=== PATIENT | male | born 1940 | race Caucasian/White ===

== ENCOUNTER 2017-01-27 17:49 | Inpatient (IN) | payer MEDICARE, BC ==
[2017-01-27] MEDS ORDERED: SODIUM CHLORIDE 0.9% 500 ML IV STA (18:15)
[2017-01-27 18:27] LABS: Basophils # (A) 0.1 k/uL (0-0.2); Basophils % (A) 0 %; CH 31.2; CHCM 35.4; Eosinophils # (A) 0.2 k/uL (0-0.7); Eosinophils % (A) 1 %; HCT 42.1 % (39.0-53.0); HDW 2.67; HGB 15.3 gm/dL (13.0-17.5); Luc # (Auto) 0.27; Luc % (Auto) 1; Lymphocytes # (A) 2.2 k/uL (1.0-4.8); Lymphocytes % (A) 11 %; MCH 32.2 pg (25.0-35.0); MCHC 36.3 g/dL (31.0-37.0); MCV 88.7 fL (80.0-100.0); Mean Platelet Volume 7.3; Monocytes # (A) 1.4 k/uL (0-1.0); Monocytes % (A) 7 %; Neutrophils # (A) 16.6 k/uL (1.3-7.7); Neutrophils % (A) 81 %; RBC 4.75 m/uL (4.30-5.90); RDW 12.8 % (11.5-15.5); WBC 20.7 k/uL (3.8-10.6); WBC (Perox) 20.72
--- NOTE | 2017-01-27 18:27 | ED ---
Dizziness HPI - General Chief Complaint: Dizziness Stated Complaint: nausea,vomiting Time Seen by Provider: 01/27/17 17:55 Source: patient Mode of arrival: wheelchair Limitations: no limitations - History of Present Illness Initial Comments: This patient is a 76-year-old man who presents to be evaluated for a constellation of symptoms that include feeling off balance, having some vomiting , and abdominal pain. The patient believes that he "ate something that was bad " on Thursday. The patient states that Thursday a little after noon he developed some epigastric pain and had about 3 episodes of vomiting that day. The pain he described as aching, constant, it radiated to a small area in the middle of his back. He states that the pain had resolved by the evening. When he woke up today he was feeling dizzy and a little weak. He states that when he tries to walk he ends up taking 2 steps forward and one step backward. He and his had been camping with friends and the friends have been having to help him walk. The patient does not complain of focal weakness but states that he is feeling off balance. Patient states she has not had any of the abdominal pain or the back pain today. He has not had any of the vomiting today. He has not had a change in bowel movements. Patient has not had chest pain, dyspnea, diaphoresis, cough, fever or chills. MD Complaint: dizziness, difficulty walking Onset/Timin -: days(s) Timing: gradual onset Description: off-balance, difficulty walking History of Same: No History of Trauma: No Severity: moderate Improves With: remaining still Associated Symptoms: denies other symptoms - Related Data Home Medications Medication Instructions Recorded Confirmed Insulin Glargine,Hum.rec.anlog 38 unit SQ DAILY 01/27/17 01/27/17 [Lantus Solostar] Prandin(Unknown Dose) 3 tab PO TID 01/27/17 01/27/17 Allergies Allergy/AdvReac Type Severity Reaction Status Date / Time No Known Allergies Allergy Verified 01/27/17 18:03 Review of Systems ROS Statement: Those systems with pertinent positive or pertinent negative responses have been documented in the HPI. ROS Other: All systems not noted in ROS Statement are negative. Constitutional: Reports: weakness. Denies: fever, chills Eyes: Denies: vision change ENT: Denies: ear pain Respiratory: Denies: cough, dyspnea Cardiovascular: Denies: chest pain, palpitations, orthopnea, edema, syncope Gastrointestinal: Reports: as per HPI, abdominal pain, nausea, vomiting. Denies : diarrhea, hematemesis, melena, hematochezia Genitourinary: Denies: dysuria, hematuria Musculoskeletal: Reports: as per HPI, back pain Skin: Denies: rash Neurological: Reports: weakness, abnormal gait. Denies: headache, numbness, paresthesias, confusion, vertigo Past Medical History Past Medical History: Diabetes Mellitus History of Any Multi-Drug Resistant Organisms: None Reported Past Surgical History: No Surgical Hx Reported Past Psychological History: No Psychological Hx Reported Smoking Status: Never smoker Past Alcohol Use History: None Reported Past Drug Use History: None Reported General Exam Limitations: no limitations General appearance: alert, in no apparent distress Head exam: Present: atraumatic, normocephalic, normal inspection Eye exam: Present: normal appearance, PERRL, EOMI. Absent: scleral icterus, conjunctival injection, nystagmus ENT exam: Present: mucous membranes dry Neck exam: Present: normal inspection Respiratory exam: Present: normal lung sounds bilaterally. Absent: respiratory distress, wheezes, rales, rhonchi, stridor Cardiovascular Exam: Present: regular rate, normal rhythm, normal heart sounds. Absent: systolic murmur, diastolic murmur, rubs, gallop GI/Abdominal exam: Present: soft, normal bowel sounds. Absent: distended, tenderness, guarding, rebound, rigid, mass Extremities exam: Present: normal inspection, normal capillary refill. Absent: pedal edema, calf tenderness Back exam: Present: normal inspection. Absent: CVA tenderness (R), CVA tenderness (L) Neurological exam: Present: alert, oriented X3, CN II-XII intact. Absent: motor sensory deficit Skin exam: Present: warm, dry, intact, normal color. Absent: rash Course Vital Signs 01/27/17 01/27/17 01/27/17 17:51 18:40 19:22 Temperature 97.2 F L Pulse Rate 70 65 72 Respiratory 20 18 18 Rate Blood Pressure 121/57 119/56 127/59 O2 Sat by Pulse 98 98 97 Oximetry 01/27/17 20:06 Temperature 102.9 F H Pulse Rate 56 L Respiratory 18 Rate Blood Pressure 157/67 O2 Sat by Pulse 94 L Oximetry EKG Findings - EKG Results: EKG: interpreted by ERMD, WNL, sinus rhythm (Rate approximate 62 bpm), normal axis, normal QRS, normal ST/T, no acute changes - KS, Pacemaker, Normal: Normal tracing: normal tracing Medical Decision Making - Lab Data Result diagrams: 01/27/17 18:13 01/27/17 18:13 Lab Results 01/27/17 01/27/17 01/27/17 Range/Units 18:13 18:13 18:13 WBC 20.7 H (3.8-10.6) k/uL RBC 4.75 (4.30-5.90) m/uL Hgb 15.3 (13.0-17.5) gm/dL Hct 42.1 (39.0-53.0) % MCV 88.7 (80.0-100.0) fL MCH 32.2 (25.0-35.0) pg MCHC 36.3 (31.0-37.0) g/dL RDW 12.8 (11.5-15.5) % Plt Count 233 (150-450) k/uL Neutrophils % 81 % Lymphocytes % 11 % Monocytes % 7 % Eosinophils % 1 % Basophils % 0 % Neutrophils # 16.6 H (1.3-7.7) k/uL Lymphocytes # 2.2 (1.0-4.8) k/uL Monocytes # 1.4 H (0-1.0) k/uL Eosinophils # 0.2 (0-0.7) k/uL Basophils # 0.1 (0-0.2) k/uL Sodium 137 (137-145) mmol/L Potassium 4.5 (3.5-5.1) mmol/L Chloride 99 (98-107) mmol/L Carbon Dioxide 27 (22-30) mmol/L Anion Gap 11 mmol/L BUN 17 (9-20) mg/dL Creatinine 1.20 (0.66-1.25) mg/dL Est GFR (MDRD) Af Amer >60 (>60 ml/min/1.73 sqM) Est GFR (MDRD) Non-Af 59 (>60 ml/min/1.73 sqM) Glucose 205 H (74-99) mg/dL Plasma Lactic Acid Michele 1.8 (0.7-2.0) mmol/L Calcium 9.7 (8.4-10.2) mg/dL Total Bilirubin 1.0 (0.2-1.3) mg/dL AST 21 (17-59) U/L ALT 35 (21-72) U/L Alkaline Phosphatase 71 (38-126) U/L Troponin I (0.000-0.034) ng/mL Total Protein 7.2 (6.3-8.2) g/dL Albumin 4.1 (3.5-5.0) g/dL Urine Color Urine Appearance (Clear) Urine pH (5.0-8.0) Ur Specific Waldo (1.001-1.035) Urine Protein (Negative) Urine Glucose (UA) (Negative) Urine Ketones (Negative) Urine Blood (Negative) Urine Nitrite (Negative) Urine Bilirubin (Negative) Urine Urobilinogen (<2.0) mg/dL Ur Leukocyte Esterase (Negative) Urine RBC (0-5) /hpf Urine WBC (0-5) /hpf Ur Squamous Epith Cells (0-4) /hpf Urine Bacteria (None) /hpf Hyaline Casts (0-2) /lpf Urine Mucus (None) /hpf 01/27/17 01/27/17 Range/Units 18:13 18:39 WBC (3.8-10.6) k/uL RBC (4.30-5.90) m/uL Hgb (13.0-17.5) gm/dL Hct (39.0-53.0) % MCV (80.0-100.0) fL MCH (25.0-35.0) pg MCHC (31.0-37.0) g/dL RDW (11.5-15.5) % Plt Count (150-450) k/uL Neutrophils % % Lymphocytes % % Monocytes % % Eosinophils % % Basophils % % Neutrophils # (1.3-7.7) k/uL Lymphocytes # (1.0-4.8) k/uL Monocytes # (0-1.0) k/uL Eosinophils # (0-0.7) k/uL Basophils # (0-0.2) k/uL Sodium (137-145) mmol/L Potassium (3.5-5.1) mmol/L Chloride (98-107) mmol/L Carbon Dioxide (22-30) mmol/L Anion Gap mmol/L BUN (9-20) mg/dL Creatinine (0.66-1.25) mg/dL Est GFR (MDRD) Af Amer (>60 ml/min/1.73 sqM) Est GFR (MDRD) Non-Af (>60 ml/min/1.73 sqM) Glucose (74-99) mg/dL Plasma Lactic Acid Michele (0.7-2.0) mmol/L Calcium (8.4-10.2) mg/dL Total Bilirubin (0.2-1.3) mg/dL AST (17-59) U/L ALT (21-72) U/L Alkaline Phosphatase (38-126) U/L Troponin I <0.012 (0.000-0.034) ng/mL Total Protein (6.3-8.2) g/dL Albumin (3.5-5.0) g/dL Urine Color Yellow Urine Appearance Cloudy (Clear) Urine pH 5.5 (5.0-8.0) Ur Specific Waldo 1.024 (1.001-1.035) Urine Protein 1+ H (Negative) Urine Glucose (UA) 4+ H (Negative) Urine Ketones Trace H (Negative) Urine Blood Negative (Negative) Urine Nitrite Negative (Negative) Urine Bilirubin Negative (Negative) Urine Urobilinogen <2.0 (<2.0) mg/dL Ur Leukocyte Esterase Negative (Negative) Urine RBC 1 (0-5) /hpf Urine WBC 3 (0-5) /hpf Ur Squamous Epith Cells 1 (0-4) /hpf Urine Bacteria Rare H (None) /hpf Hyaline Casts 10 H (0-2) /lpf Urine Mucus Many H (None) /hpf Disposition Clinical Impression: Fever, Leukocytosis, SIRS (systemic inflammatory response syndrome) Narrative: suspect pneumonia Disposition: ADMITTED IP TO THIS HOSP Condition: Fair
[2017-01-27 18:46] LABS: ALT 35 U/L (21-72); AST 21 U/L (17-59); Alkaline Phosphatase 71 U/L (38-126); Anion Gap 11 mmol/L; Blood Urea Nitrogen 17 mg/dL (9-20); Calcium 9.7 mg/dL (8.4-10.2); Carbon Dioxide 27 mmol/L (22-30); Chloride 99 mmol/L (98-107); Glucose 205 mg/dL (74-99); Non-African American GFR(MDRD) 59 (>60 ml/min/1.73 sqM); Potassium 4.5 mmol/L (3.5-5.1); Sodium 137 mmol/L (137-145); Total Protein 7.2 g/dL (6.3-8.2)
[2017-01-27 18:54] LABS: Appearance,Urine Cloudy (Clear); Bacteria,Urine Rare /hpf; Bilirubin,Urine Negative (Negative); Glucose,Urine (UA) 4+ (Negative); Ketones,Urine Trace (Negative); Leukocyte Esterase,Urine Negative (Negative); Mucus,Urine Many /hpf; Nitrite,Urine Negative (Negative); PH, Urine 5.5 (5.0-8.0); Particle Count 29562; Protein,Urine 1+ (Negative); RBC,Urine 1 /hpf (0-5); Specific Gravity,Urine 1.024 (1.001-1.035); Squamous Epithelial Cell,Urine 1 /hpf (0-4); UA Billing (MACRO vs. MICRO) MICRO; Urobilinogen,Urine <2.0 mg/dL (<2.0); WBC,Urine 3 /hpf (0-5)
--- NOTE | 2017-01-27 19:14 | XR ---
EXAMINATION TYPE: XR chest 1V portable DATE OF EXAM: 01/27/2017 HISTORY: Shortness of breath. COMPARISON: None. TECHNIQUE: Single view of the chest is submitted. FINDINGS: Demonstrated are scattered senescent parenchymal change. There is no evidence for focal infiltrate. The heart is stable. Hilar and mediastinal structures are within normal limits. Degenerative changes are seen of the dorsal spine. IMPRESSION: 1. Chronic changes without evidence for acute pulmonary disease.
--- NOTE | 2017-01-27 19:45 | CT ---
EXAMINATION TYPE: CT brain wo con DATE OF EXAM: 01/27/2017 COMPARISON: NONE HISTORY: Dizziness today. CT DLP: 1030.[address] of the brain was performed. The ventricles, basal cisterns and sulci overlying the cerebral convexities demonstrate mild enlargem ent. There is no evidence for intracranial hemorrhage or sulcal effacement. There is decreased attenuation about the periventricular white matter and deep white matter of both c erebral hemispheres, compatible with chronic small vessel ischemia. Differential diagnosis does inclu de demyelination. No mass effects are seen.No midline shift. Osseous calvarium is intact. Chronic maxillary sinusitis. If symptoms persist consider MRI. IMPRESSION: 1. Age related atrophic and chronic small vessel ischemic change without acute intracranial process s een at this time.
[2017-01-27] MEDS ORDERED: INSULIN REGULAR 100 UNIT/ML VIAL SQ STA (19:50)
[2017-01-27] MEDS ORDERED: LEVOFLOXACIN 750MG-D5W PMX 750 MG in DEXTROSE/WATER 1 150ML.BAG IVPB STA (20:25)
[2017-01-27] MEDS ORDERED: NALOXONE 0.4 MG/ML 1 ML VIAL IV PRN (20:26)
[2017-01-27] MEDS ORDERED: ONDANSETRON 4 MG/2 ML VIAL IVP PRN (20:26)
[2017-01-27] MEDS: SODIUM CHLORIDE 0.9% 1,000 ML IV SCH (20:44)
[2017-01-27] MEDS ORDERED: ACETAMINOPHEN TAB 325 MG TAB PO STA (20:54)
[2017-01-27 21:00] LABS: Glucose,Whole Blood 192 mg/dL (75-99)
--- NOTE | 2017-01-27 21:12 | CT ---
EXAMINATION TYPE: CT abdomen pelvis wo con DATE OF EXAM: 01/27/2017 COMPARISON: NONE HISTORY: Nausea and vomiting yesterday. CT DLP: 904.40 mGycm Examination of the solid and hollow viscera is limited given the lack of contrast. FINDINGS: LUNG BASES: No evidence for nodule. Mild right basilar linear atelectasis. Small sliding-type hiatal hernia. LIVER/GB: Cholelithiasis with mild gallbladder wall thickening. No evidence for pericholecystic fluid . Correlate clinically for cholecystitis. No space-occupying hepatic lesion. PANCREAS: No pancreatic mass identified. No inflammatory process seen. SPLEEN: No evidence for splenomegaly. No intrasplenic lesions seen. ADRENALS: No adrenal nodules identified. No evidence for thickening. KIDNEYS: Hypoattenuating lesion upper pole left kidney may reflect a cyst. No nephrolithiasis. No hyd ronephrosis. BOWEL: Appendix has a normal appearance. No evidence of bowel obstruction. No inflammatory process. Lymph nodes: No evidence for adenopathy greater than 1 cm. Abdominal aorta: Atheromatous changes seen. No evidence for aneurysm. Genital organs: Prostate enlargement with calcifications. Other: Degnerative changes lumbar spine. IMPRESSION: 1. CHOLELITHIASIS WITH GALLBLADDER WALL THICKENING. CORRELATE FOR CHOLECYSTITIS. 2. Mild linear right basilar atelectasis. 3. Small sliding-type hiatal hernia.
[2017-01-27 21:33] LABS: Glucose,Whole Blood 178 mg/dL (75-99)
[2017-01-27 22:34] VITALS: BMI 29.7
[2017-01-27] MEDS: INSULIN LISPRO (humaLOG) 300 UNIT/3 ML VIAL SQ SCH (22:35)
[2017-01-27] MEDS: REPAGLINIDE 1 MG TAB PO SCH (22:35)
[2017-01-28 00:20] LABS: Hemoglobin A1C 8.6 % (4.2-6.1)
[2017-01-28] MEDS: ACETAMINOPHEN TAB 325 MG TAB PO PRN ×3 (00:52→22:47)
[2017-01-28 05:55] LABS: Glucose,Whole Blood 90 mg/dL (75-99)
--- NOTE | 2017-01-28 08:24 | XR ---
EXAMINATION TYPE: XR chest 2V DATE OF EXAM: 01/28/2017 HISTORY: Pain. REFERENCE: Previous study dated 01/27/2017. FINDINGS: There is apparent elevation of the right hemidiaphragm. There is bibasilar atelectasis. The heart is mildly enlarged. I could not exclude a tiny right-sided effusion. IMPRESSION: 1. BIBASILAR ATELECTASIS. 2. MILD CARDIOMEGALY. 3. I COULD NOT EXCLUDE A SMALL, RIGHT EFFUSION.
[2017-01-28] MEDS: REPAGLINIDE 1 MG TAB PO SCH ×3 (08:31→23:02)
[2017-01-28] MEDS: INSULIN GLARGINE 100 UNIT/ML 10 ML VIAL SQ SCH (08:32)
[2017-01-28] MEDS: INSULIN LISPRO (humaLOG) 300 UNIT/3 ML VIAL SQ SCH ×4 (08:33→22:51)
[2017-01-28 12:11] LABS: Glucose,Whole Blood 179 mg/dL (75-99)
--- NOTE | 2017-01-28 12:28 | P.GSCN ---
History of Present Illness Consult date: 01/28/17 Reason for Consult: Cholecystitis History of present illness: Patient came to the hospital last night with fevers and weakness. He started having abdominal discomfort in the upper abdomen radiating to the back on Thursday. Per the patient the pain yesterday was absent. He did have multiple episodes of vomiting on Thursday and had a diminished appetite yesterday. White blood cell count is elevated at 20. Fevers as high as 102. CAT scan shows gallbladder inflammation with stones. His comp is normal. Repeat labs from today are pending. Blood cultures are pending. He states he feels much better at this time. Appetite slightly diminished. No history of similar events in the past. Denies any change in the color of his skin urine or stool. Patient is diabetic. Review of Systems The patient denies any acute changes in vision or hearing, no dysphagia or odynophagia, no chest pain or shortness of breath, no dysuria or hematuria, no headache, no runny nose, no rectal bleeding or melena, no unexplained weight loss Past Medical History Past Medical History: Diabetes Mellitus, Hyperlipidemia History of Any Multi-Drug Resistant Organisms: None Reported Past Surgical History: No Surgical Hx Reported Past Psychological History: No Psychological Hx Reported Smoking Status: Never smoker Past Alcohol Use History: None Reported Past Drug Use History: None Reported - Past Family History Father Family Medical History: No Reported History Mother Family Medical History: Dementia Medications and Allergies Home Medications Medication Instructions Recorded Confirmed Type Insulin Glargine,Hum.rec.anlog 38 unit SQ DAILY 01/27/17 01/27/17 History [Lantus Solostar] Prandin(Unknown Dose) 3 tab PO TID 01/27/17 01/27/17 History Allergies Allergy/AdvReac Type Severity Reaction Status Date / Time No Known Allergies Allergy Verified 01/27/17 18:03 Surgical - Exam Vital Signs Temp Pulse Resp BP Pulse Ox 97.2 F L 70 20 121/57 98 01/27/17 17:51 01/27/17 17:51 01/27/17 17:51 01/27/17 17:51 01/27/17 17:51 Physical exam: General: Well-developed, well-nourished HEENT: Normocephalic, sclerae nonicteric Abdomen: Mild epigastric tenderness, no rebound or guarding, no palpable mass Extremities: No edema Neuro: Alert and oriented Results - Labs 01/27/17 18:13 01/27/17 18:13 Abnormal Lab Results - Last 24 Hours (Table) 01/27/17 01/27/17 01/27/17 Range/Units 18:13 18:13 18:13 WBC 20.7 H (3.8-10.6) k/uL Neutrophils # 16.6 H (1.3-7.7) k/uL Monocytes # 1.4 H (0-1.0) k/uL Glucose 205 H (74-99) mg/dL POC Glucose (mg/dL) (75-99) mg/dL Hemoglobin A1c 8.6 H (4.2-6.1) % Urine Protein (Negative) Urine Glucose (UA) (Negative) Urine Ketones (Negative) Urine Bacteria (None) /hpf Hyaline Casts (0-2) /lpf Urine Mucus (None) /hpf 01/27/17 01/27/17 01/27/17 Range/Units 18:39 20:58 21:31 WBC (3.8-10.6) k/uL Neutrophils # (1.3-7.7) k/uL Monocytes # (0-1.0) k/uL Glucose (74-99) mg/dL POC Glucose (mg/dL) 192 H 178 H (75-99) mg/dL Hemoglobin A1c (4.2-6.1) % Urine Protein 1+ H (Negative) Urine Glucose (UA) 4+ H (Negative) Urine Ketones Trace H (Negative) Urine Bacteria Rare H (None) /hpf Hyaline Casts 10 H (0-2) /lpf Urine Mucus Many H (None) /hpf 01/28/17 Range/Units 12:07 WBC (3.8-10.6) k/uL Neutrophils # (1.3-7.7) k/uL Monocytes # (0-1.0) k/uL Glucose (74-99) mg/dL POC Glucose (mg/dL) 179 H (75-99) mg/dL Hemoglobin A1c (4.2-6.1) % Urine Protein (Negative) Urine Glucose (UA) (Negative) Urine Ketones (Negative) Urine Bacteria (None) /hpf Hyaline Casts (0-2) /lpf Urine Mucus (None) /hpf Diabetes panel 01/27/17 01/27/17 Range/Units 18:13 18:13 Sodium 137 (137-145) mmol/L Potassium 4.5 (3.5-5.1) mmol/L Chloride 99 (98-107) mmol/L Carbon Dioxide 27 (22-30) mmol/L BUN 17 (9-20) mg/dL Creatinine 1.20 (0.66-1.25) mg/dL Glucose 205 H (74-99) mg/dL Hemoglobin A1c 8.6 H (4.2-6.1) % Calcium 9.7 (8.4-10.2) mg/dL AST 21 (17-59) U/L ALT 35 (21-72) U/L Alkaline Phosphatase 71 (38-126) U/L Total Protein 7.2 (6.3-8.2) g/dL Albumin 4.1 (3.5-5.0) g/dL Calcium panel 01/27/17 Range/Units 18:13 Calcium 9.7 (8.4-10.2) mg/dL Albumin 4.1 (3.5-5.0) g/dL Pituitary panel 01/27/17 Range/Units 18:13 Sodium 137 (137-145) mmol/L Potassium 4.5 (3.5-5.1) mmol/L Chloride 99 (98-107) mmol/L Carbon Dioxide 27 (22-30) mmol/L BUN 17 (9-20) mg/dL Creatinine 1.20 (0.66-1.25) mg/dL Glucose 205 H (74-99) mg/dL Calcium 9.7 (8.4-10.2) mg/dL Adrenal panel 01/27/17 Range/Units 18:13 Sodium 137 (137-145) mmol/L Potassium 4.5 (3.5-5.1) mmol/L Chloride 99 (98-107) mmol/L Carbon Dioxide 27 (22-30) mmol/L BUN 17 (9-20) mg/dL Creatinine 1.20 (0.66-1.25) mg/dL Glucose 205 H (74-99) mg/dL Calcium 9.7 (8.4-10.2) mg/dL Total Bilirubin 1.0 (0.2-1.3) mg/dL AST 21 (17-59) U/L ALT 35 (21-72) U/L Alkaline Phosphatase 71 (38-126) U/L Total Protein 7.2 (6.3-8.2) g/dL Albumin 4.1 (3.5-5.0) g/dL Assessment and Plan (1) Acute cholecystitis Narrative/Plan: Patient and I discussed the clinical scenario in detail. We suspect that the patient's gallbladder is the likely source of his illness. We'll repeat labs including amylase and CMP at this time. Continue IV antibiotics. Keep nothing by mouth for now. Will tentatively plan laparoscopic cholecystectomy possible open cholecystectomy later today. Risks of bleeding, infection, hernia, bile leak, bile duct injury, conversion to an open procedure, cardiac or respiratory complications were discussed. The patient understands and wishes to proceed. Status: Acute
[2017-01-28 12:51] LABS: Basophils # (A) 0.1 k/uL (0-0.2); Basophils % (A) 0 %; CH 31.4; CHCM 33.9; Eosinophils # (A) 0.2 k/uL (0-0.7); Eosinophils % (A) 1 %; HCT 40.5 % (39.0-53.0); HDW 2.57; HGB 13.7 gm/dL (13.0-17.5); Luc # (Auto) 0.17; Luc % (Auto) 1; Lymphocytes # (A) 1.7 k/uL (1.0-4.8); Lymphocytes % (A) 10 %; MCH 31.4 pg (25.0-35.0); MCHC 33.8 g/dL (31.0-37.0); Mean Platelet Volume 8.4; Monocytes # (A) 1.1 k/uL (0-1.0); Monocytes % (A) 7 %; Neutrophils % (A) 81 %; RBC 4.35 m/uL (4.30-5.90); WBC 17.3 k/uL (3.8-10.6); WBC (Perox) 16.44
[2017-01-28 13:01] LABS: ALT 32 U/L (21-72); AST 24 U/L (17-59); Alkaline Phosphatase 62 U/L (38-126); Amylase <30 U/L (30-110); Anion Gap 10 mmol/L; Blood Urea Nitrogen 17 mg/dL (9-20); Calcium 8.9 mg/dL (8.4-10.2); Carbon Dioxide 24 mmol/L (22-30); Chloride 104 mmol/L (98-107); Glucose 87 mg/dL (74-99); Non-African American GFR(MDRD) 59 (>60 ml/min/1.73 sqM); Potassium 3.8 mmol/L (3.5-5.1); Sodium 138 mmol/L (137-145); Total Bilirubin 1.1 mg/dL (0.2-1.3); Total Protein 6.1 g/dL (6.3-8.2)
[2017-01-28] MEDS: AMPICILLIN-SULBACTAM 3 GM in SODIUM CHLORIDE 0.9% 100 ML IVPB SCH ×3 (13:04→22:50)
[2017-01-28] MEDS: SODIUM CHLORIDE 0.9% 1,000 ML IV SCH ×2 (13:05→22:50)
[2017-01-28 16:46] LABS: Glucose,Whole Blood 119 mg/dL (75-99)
--- NOTE | 2017-01-28 17:14 | P.HPIM ---
History of Present Illness H&P Date: 01/28/17 Chief Complaint: Change in mental status 86-year-old gentleman with history of diabetes and peripheral neuropathy comes in to the hospital with generalized weakness and some change in mental status. Patient states that he has not had an episode of sudden right-sided abdominal pain with radiation to the epigastric region with one episode of nausea and biliary emesis Patient was noted to have a T-max 103. Patient was seen in the emergency room with the concern for sepsis a chest x-ray was done which did not reveal any acute abnormalities with abdominal pain features a computed tomography scan of the abdomen was done which showed inflammatory changes in the gallbladder with choledocholithiasis During the time of my evaluation patient states that he does not have headache chest pain difficulty breathing nausea vomiting or diarrhea no significant right upper quadrant abdominal pain is reported She does not have any history of cardiac disease lifelong nonsmoker Patient is able to perform more than 4 mets at base line Review of Systems All systems: negative (Noted in HPI) Past Medical History Past Medical History: Diabetes Mellitus, Hyperlipidemia History of Any Multi-Drug Resistant Organisms: None Reported Past Surgical History: No Surgical Hx Reported Past Psychological History: No Psychological Hx Reported Smoking Status: Never smoker Past Alcohol Use History: None Reported Past Drug Use History: None Reported - Past Family History Father Family Medical History: No Reported History Mother Family Medical History: Dementia Medications and Allergies Home Medications Medication Instructions Recorded Confirmed Type Insulin Glargine,Hum.rec.anlog 38 unit SQ DAILY 01/27/17 01/27/17 History [Lantus Solostar] Prandin(Unknown Dose) 3 tab PO TID 01/27/17 01/27/17 History Allergies Allergy/AdvReac Type Severity Reaction Status Date / Time No Known Allergies Allergy Verified 01/27/17 18:03 Physical Exam Vitals: Vital Signs Temp Pulse Pulse Resp BP BP Pulse Ox 01/28/17 15:51 99.1 F 62 16 128/65 95 01/28/17 11:17 98.4 F 61 18 121/64 94 L 01/28/17 08:00 100.3 F H 72 18 123/64 94 L 01/28/17 04:00 100.6 F H 65 18 125/62 96 01/28/17 00:52 101.0 F H 01/27/17 23:30 100.3 F H 60 18 119/58 93 L 01/27/17 21:50 102.0 F H 62 18 139/64 96 01/27/17 21:00 103.1 F H 107 H 20 143/65 96 01/27/17 20:06 102.9 F H 56 L 18 157/67 94 L 01/27/17 19:22 72 18 127/59 97 01/27/17 18:40 65 18 119/56 98 01/27/17 17:51 97.2 F L 70 20 121/57 98 Intake and Output 01/28/17 01/28/17 01/28/17 06:59 14:59 22:59 Intake Total 750 100 Output Total 880 300 Balance -130 -200 Intake: IV 750 Levofloxacin 750Mg-D5w 150 Pmx 750 mg In Dextrose/ Water 1 150ml.bag @ 100 mls/hr IVPB ONCE STA Rx#: [id number] Sodium Chloride 0.9% 1, 600 000 ml @ 75 mls/hr IV . [id number] [facility] Rx#:[id number] Oral 100 Output: Urine 880 300 Straight 400 Other: Voiding Method Urinal Toilet Toilet # Voids 2 Weight 96.9 kg Physical exam Gen. appearance oriented 3 in no distress Neck is supple no JVD Lungs good air entry clear to auscultation no rhonchi or wheezing Heart S1-S2 heard regular rate and rhythm no murmurs appreciated Abdomen is softr no organomegaly bowel sounds are intact. Goldstein's positive Neurologically cranial nerves II-12 grossly intact no focal motor or sensory deficits noted Skin no abnormalities appreciated Results CBC & Chem 7: 01/28/17 05:49 01/28/17 05:49 Labs: Abnormal Lab Results - Last 24 Hours (Table) 01/27/17 01/27/17 01/27/17 Range/Units 18:13 18:13 18:13 WBC 20.7 H (3.8-10.6) k/uL Neutrophils # 16.6 H (1.3-7.7) k/uL Monocytes # 1.4 H (0-1.0) k/uL Glucose 205 H (74-99) mg/dL POC Glucose (mg/dL) (75-99) mg/dL Hemoglobin A1c 8.6 H (4.2-6.1) % Total Protein (6.3-8.2) g/dL Albumin (3.5-5.0) g/dL Amylase (30-110) U/L Urine Protein (Negative) Urine Glucose (UA) (Negative) Urine Ketones (Negative) Urine Bacteria (None) /hpf Hyaline Casts (0-2) /lpf Urine Mucus (None) /hpf 01/27/17 01/27/17 01/27/17 Range/Units 18:39 20:58 21:31 WBC (3.8-10.6) k/uL Neutrophils # (1.3-7.7) k/uL Monocytes # (0-1.0) k/uL Glucose (74-99) mg/dL POC Glucose (mg/dL) 192 H 178 H (75-99) mg/dL Hemoglobin A1c (4.2-6.1) % Total Protein (6.3-8.2) g/dL Albumin (3.5-5.0) g/dL Amylase (30-110) U/L Urine Protein 1+ H (Negative) Urine Glucose (UA) 4+ H (Negative) Urine Ketones Trace H (Negative) Urine Bacteria Rare H (None) /hpf Hyaline Casts 10 H (0-2) /lpf Urine Mucus Many H (None) /hpf 01/28/17 01/28/17 01/28/17 Range/Units 05:49 05:49 12:07 WBC 17.3 H (3.8-10.6) k/uL Neutrophils # 14.0 H (1.3-7.7) k/uL Monocytes # 1.1 H (0-1.0) k/uL Glucose (74-99) mg/dL POC Glucose (mg/dL) 179 H (75-99) mg/dL Hemoglobin A1c (4.2-6.1) % Total Protein 6.1 L (6.3-8.2) g/dL Albumin 3.2 L (3.5-5.0) g/dL Amylase <30 L (30-110) U/L Urine Protein (Negative) Urine Glucose (UA) (Negative) Urine Ketones (Negative) Urine Bacteria (None) /hpf Hyaline Casts (0-2) /lpf Urine Mucus (None) /hpf 01/28/17 Range/Units 16:44 WBC (3.8-10.6) k/uL Neutrophils # (1.3-7.7) k/uL Monocytes # (0-1.0) k/uL Glucose (74-99) mg/dL POC Glucose (mg/dL) 119 H (75-99) mg/dL Hemoglobin A1c (4.2-6.1) % Total Protein (6.3-8.2) g/dL Albumin (3.5-5.0) g/dL Amylase (30-110) U/L Urine Protein (Negative) Urine Glucose (UA) (Negative) Urine Ketones (Negative) Urine Bacteria (None) /hpf Hyaline Casts (0-2) /lpf Urine Mucus (None) /hpf Thrombosis Risk Factor Assmnt - Choose All That Apply Any of the Below Risk Factors Present?: Yes Each Factor Represents 1 point: Medical pt on bed rest, Sepsis (< 1month) Other Risk Factors: Yes Each Risk Factor Represents 2 Points: Age 61-74 years Thrombosis Risk Factor Assessment Total Risk Factor Score: 4 Thrombosis Risk Factor Assessment Level: Moderate Risk Assessment and Plan Plan: #1 sepsis secondary to acute cholecystitis #2 diabetes mellitus #3 peripheral neuropathy Plan We'll obtain a surgical consultation for cholecystectomy empirically placed on Unasyn Patient is able to perform more than 4 mets at baseline there is no further need for any evaluation patient is cleared for surgery DVT prophylaxis
[2017-01-28] MEDS ORDERED: IV FLUID CONTINUATION 1,000 ML IV ONE (17:23)
[2017-01-28] MEDS ORDERED: METOCLOPRAMIDE 5 MG/ML 2 ML VIAL IVP ONE (17:54)
[2017-01-28] MEDS ORDERED: HEPARIN SODIUM,PORCINE 5,000 UNIT/ML 1 ML VIAL SQ ONE (18:03)
[2017-01-28] MEDS ORDERED: SUCCINYLCHOLINE CHLORIDE 100 MG/5 ML SYR IV ONE (18:06)
[2017-01-28] MEDS ORDERED: ROCURONIUM BROMIDE 10 MG/ML 10 ML VIAL IV ONE (18:06)
[2017-01-28] MEDS ORDERED: fentaNYL (PF) 50 MCG/ML 2 ML AMP ONE (18:06)
[2017-01-28] MEDS ORDERED: PROPOFOL 10 MG/ML 20 ML VIAL IV ONE (18:06)
[2017-01-28] MEDS ORDERED: GLYCOPYRROLATE 0.2 MG/ML 2 ML VIAL ONE (18:06)
[2017-01-28] MEDS ORDERED: LIDOCAINE 1% INJ 10MG/ML (20 ML MDV) ONE (18:06)
[2017-01-28] MEDS ORDERED: NEOSTIGMINE 1 MG/ML 10 ML VIAL ONE (18:06)
[2017-01-28] MEDS ORDERED: SODIUM CHLORIDE 0.9% 100 ML with ceFAZolin 2,000 MG IV ONE ×2 (18:15)
[2017-01-28] MEDS ORDERED: BUPIVACAINE (PF) 0.25% 30 ML VIAL SQ ONE ×2 (18:26→19:45)
[2017-01-28] MEDS ORDERED: LACTATED RINGERS 1,000 ML IV ONE ×2 (18:58)
--- NOTE | 2017-01-28 20:06 | P.PCN ---
Date of Procedure: 01/28/17 Preoperative Diagnosis: Postoperative Diagnosis: Procedure(s) Performed: PREOPERATIVE DIAGNOSIS: Acute cholecystitis POSTOPERATIVE DIAGNOSIS: Same with hydrops PROCEDURE: Laparoscopic cholecystectomy SURGEON: Gretchen EBL: Minimal see anesthesia record ANESTHESIA: Gen. COMPLICATIONS: None OPERATIVE PROCEDURE: The patient was brought and placed on the operating room table in the supine position. The patient was placed under general anesthesia at that time. The abdomen was prepped and draped in the usual sterile fashion. A small horizontal supraumbilical incision was made. The fascia was grasped with the Bella forceps. The fascia was retracted anteriorly. The Veress needle was advanced into the peritoneal cavity. The saline drop test was normal. Insufflation took place up to 15 mmHg. A 5 mm optical trocar was advanced and the peritoneal cavity. 2 additional 5 mm trochars were placed in the right upper quadrant under direct visualization. A 10 mm trocar was advanced into the epigastric incision site. This was later switched to a 12 mm trocar. The gallbladder was acutely inflamed. It was quite distended and there was a small focus of gangrenous changes. An opening was made in the fundus and clear fluid was evacuated. The gallbladder was retracted superiorly and laterally. The peritoneum overlying the infundibulum was bluntly dissected. There was significant induration involving the infundibulum as it passed towards the suspected region of the cystic duct. There were 2-3 small vessels that were ligated using the clip care aide. The patient's infundibulum narrowed down after blunt dissection into what appeared to represent the cystic duct. The arch of the hepatic artery seemed to be just adjacent to this. Careful dissection took place using the Kitner and I was able to encircle what appeared to represent a significantly inflamed cystic duct. No additional ductal structures were seen above this level. A 2-0 Ethibond stitch was used to ligate the duct at that location and an additional 12 mm clip was also placed on the patient's side. The gallbladder was then cut on the specimen side revealing a very small opening into the cystic duct. The gallbladder was then removed from the liver bed primarily using blunt dissection. Small areas of bleeding were controlled using spot cautery. Additional small vessel was seen along the right lateral aspect of the gallbladder and clipped. A drain was placed in the gallbladder fossa exiting through the most lateral 5 mm trocar site. The gallbladder itself was removed from the epigastric trocar site with an Endo Catch bag. The gallbladder fossa was irrigated with saline. There was no evidence of any bleeding or biliary drainage seen. The trochars were then removed. The fascia at the 12 millimeter site was closed using a Elroy-Darryl 0 Vicryl stitch. The skin at all 3 sites was closed using a 4- 0 Monocryl stitch. At the end of this procedure the sponge and needle counts were correct. DISPOSITION: Stable to the recovery room Implants: Indications for Procedure: Operative Findings: Description of Procedure:
[2017-01-28 20:58] LABS: Glucose,Whole Blood 142 mg/dL (75-99)
[2017-01-28] MEDS ORDERED: LEVOFLOXACIN 750MG-D5W PMX 750 MG in DEXTROSE/WATER 1 150ML.BAG IVPB SCH (21:00)
[2017-01-29] MEDS ORDERED: ACETAMINOPHEN IV (For NPO) 1,000 MG in EMPTY BAG 1 BAG IVPB PRN (01:17)
[2017-01-29 05:37] LABS: Glucose,Whole Blood 124 mg/dL (75-99)
[2017-01-29 06:22] LABS: Basophils % (A) 0 %; CH 30.9; CHCM 34.1; Eosinophils # (A) 0.1 k/uL (0-0.7); Eosinophils % (A) 1 %; HCT 40.2 % (39.0-53.0); HDW 2.75; HGB 13.9 gm/dL (13.0-17.5); Luc # (Auto) 0.26; Luc % (Auto) 2; Lymphocytes # (A) 1.3 k/uL (1.0-4.8); Lymphocytes % (A) 9 %; MCH 31.4 pg (25.0-35.0); MCHC 34.5 g/dL (31.0-37.0); Mean Platelet Volume 6.9; Monocytes # (A) 0.9 k/uL (0-1.0); Monocytes % (A) 6 %; Neutrophils # (A) 12.3 k/uL (1.3-7.7); Neutrophils % (A) 82 %; RBC 4.42 m/uL (4.30-5.90); RDW 12.6 % (11.5-15.5); WBC 14.9 k/uL (3.8-10.6); WBC (Perox) 15.77
[2017-01-29 06:46] LABS: ALT 64 U/L (21-72); AST 72 U/L (17-59); Alkaline Phosphatase 67 U/L (38-126); Anion Gap 13 mmol/L; Blood Urea Nitrogen 15 mg/dL (9-20); Calcium 8.5 mg/dL (8.4-10.2); Carbon Dioxide 19 mmol/L (22-30); Chloride 108 mmol/L (98-107); Glucose 131 mg/dL (74-99); Non-African American GFR(MDRD) >60 (>60 ml/min/1.73 sqM); Potassium 4.2 mmol/L (3.5-5.1); Sodium 140 mmol/L (137-145); Total Bilirubin 1.1 mg/dL (0.2-1.3); Total Protein 6.4 g/dL (6.3-8.2)
[2017-01-29] MEDS: INSULIN LISPRO (humaLOG) 300 UNIT/3 ML VIAL SQ SCH ×4 (06:49→21:35)
[2017-01-29] MEDS: INSULIN GLARGINE 100 UNIT/ML 10 ML VIAL SQ SCH (09:32)
[2017-01-29] MEDS: ACETAMINOPHEN TAB 325 MG TAB PO PRN ×3 (09:32→20:20)
[2017-01-29] MEDS: REPAGLINIDE 1 MG TAB PO SCH ×3 (09:33→22:23)
[2017-01-29] MEDS: AMPICILLIN-SULBACTAM 3 GM in SODIUM CHLORIDE 0.9% 100 ML IVPB SCH ×3 (09:34→23:20)
[2017-01-29 11:51] LABS: Glucose,Whole Blood 177 mg/dL (75-99)
--- NOTE | 2017-01-29 12:43 | CDI ---
In responding to this query, please exercise your independent professional judgment. The [facility] Coding Staff and Clinical Documentation Specialists appreciate your assistance in clarifying documentation, maintaining compliance with coding guidelines, accurately documenting patients condition and capturing severity of illness. The fact that a question is asked does not imply that any particular answer is desired or expected. Communication forms are a method of clarifying documentation and are not made part of the Legal Health Record. Thank you in advance for your clarification. Last Revision, June 2015 Janice Prater [address] [facility] [place] [address] Documentation Clarification Form Date: 01/29/2017 12:28:00 PM From: Char Barr Admit Date: 01/27/2017 8:31:00 PM Patient Name: Ilir Viera Visit Number: [id number] Discharge Date: Dr. Jose Cruz Rebollar The patient has diabetes, as indicated H&P and progress note: Clinical Indicators: History of diabetes, Hemoglobin A1c 8.6 Treatment: Monitor blood sugar ACHS Insulin SQ per orders In order to capture the severity of Illness and necessary documentation specificity, please clarify: DM Type 1 DM Type 2 DM due to underlying condition, specify (e.g. Cushings syndrome) Gestational DM Unable to Determine Other Condition Please document any body system complications or specific manifestations related to the diabetes: Diabetic Nephropathy Diabetic Autonomic Neuropathy Diabetic Peripheral Vascular Disease Proliferative diabetic retinopathy with macular edema Diabetic foot ulcers, specify location Ketoacidosis Hypoglycemia with or without coma Hyperglycemia Hyperosmolarity Coma/nonketotic hyperglycemic-hyperosmolar coma Other condition Please document in your progress notes and discharge summary in order to capture severity of illness and risk of mortality. Include clinical findings that support your diagnosis. FYI: Press F11 to launch patient chart. Place X here if this finding has no clinical significance, is not applicable or if you are not able to provide any additional documentation. ARIC
[2017-01-29] MEDS: SODIUM CHLORIDE 0.9% 1,000 ML IV SCH ×2 (13:02→23:20)
[2017-01-29 16:37] LABS: Glucose,Whole Blood 157 mg/dL (75-99)
--- NOTE | 2017-01-29 20:27 | P.PN ---
Subjective Principal diagnosis: Cholecystitis Patient seems to have been doing quite well throughout the day however recently over the last hour or so he feels that he may be coming down with a fever once again. Is having some mild abdominal discomfort but says its expected. SARINA drain is serosanguineous. White blood cell count improving. He did have a fever yesterday evening about 102.5. Objective - Vital Signs Vital signs: Vital Signs Temp 98.9 F 01/29/17 15:39 Pulse 65 01/29/17 15:39 Resp 16 01/29/17 15:39 BP 124/53 01/29/17 15:39 Pulse Ox 92 L 01/29/17 15:39 Intake & Output 01/29/17 01/29/17 01/30/17 06:59 18:59 06:59 Intake Total 1625 50 Output Total 1555 1025 Balance 70 -975 Weight 97.6 kg Intake: IV 1125 Sodium Chloride 0.9% 1, 525 000 ml @ 75 mls/hr IV . [id number] [facility] Rx#:[id number] Intake, IV Titration 500 Amount ACETAMINOPHEN IV (For NPO 400 ) 1,000 mg In Empty Bag 1 bag @ 400 mls/hr IVPB Q6HR [facility] Rx#:[id number] Ampicillin-Sulbactam 3 gm 100 In Sodium Chloride 0.9% 100 ml @ 100 mls/hr IVPB Q8HR [facility] Rx#:[id number] Oral 50 Output: Drainage 45 Abdomen 45 Urine 1500 1025 Straight 1500 325 Estimated Blood Loss 10 Other: Voiding Method Urinal Indwelling Catheter - Exam Abdomen: Soft, mild distention, dressings clean and dry - Labs CBC & Chem 7: 01/29/17 06:08 01/29/17 06:03 Labs: Abnormal Lab Results - Last 24 Hours (Table) 01/28/17 01/29/17 01/29/17 Range/Units 20:56 05:34 06:03 WBC (3.8-10.6) k/uL Neutrophils # (1.3-7.7) k/uL Chloride 108 H (98-107) mmol/L Carbon Dioxide 19 L (22-30) mmol/L Glucose 131 H (74-99) mg/dL POC Glucose (mg/dL) 142 H 124 H (75-99) mg/dL AST 72 H (17-59) U/L Albumin 3.2 L (3.5-5.0) g/dL 01/29/17 01/29/17 01/29/17 Range/Units 06:08 11:46 16:35 WBC 14.9 H (3.8-10.6) k/uL Neutrophils # 12.3 H (1.3-7.7) k/uL Chloride (98-107) mmol/L Carbon Dioxide (22-30) mmol/L Glucose (74-99) mg/dL POC Glucose (mg/dL) 177 H 157 H (75-99) mg/dL AST (17-59) U/L Albumin (3.5-5.0) g/dL Microbiology - Last 24 Hours (Table) 01/27/17 18:13 Blood Culture - Preliminary Blood No Growth after 24 hours Assessment and Plan (1) Acute cholecystitis Narrative/Plan: Continue antibiotics. Follow cultures. Repeat lab work tomorrow. Continue ambulation. Diet as tolerated. Status: Acute
[2017-01-29 21:03] LABS: Glucose,Whole Blood 147 mg/dL (75-99)
[2017-01-30 07:59] LABS: Basophils % (A) 0 %; CH 31.7; CHCM 34.7; Eosinophils # (A) 0.2 k/uL (0-0.7); Eosinophils % (A) 1 %; HCT 38.3 % (39.0-53.0); HDW 2.77; HGB 12.9 gm/dL (13.0-17.5); Luc # (Auto) 0.22; Luc % (Auto) 2; Lymphocytes # (A) 1.1 k/uL (1.0-4.8); Lymphocytes % (A) 8 %; MCHC 33.7 g/dL (31.0-37.0); MCV 91.9 fL (80.0-100.0); Mean Platelet Volume 7.3; Monocytes # (A) 0.8 k/uL (0-1.0); Monocytes % (A) 6 %; Neutrophils # (A) 10.7 k/uL (1.3-7.7); Neutrophils % (A) 83 %; RBC 4.17 m/uL (4.30-5.90); RDW 12.7 % (11.5-15.5); WBC 12.9 k/uL (3.8-10.6)
[2017-01-30 08:15] LABS: Glucose,Whole Blood 90 mg/dL (75-99)
[2017-01-30 08:17] LABS: Anion Gap 10 mmol/L; Blood Urea Nitrogen 15 mg/dL (9-20); Calcium 8.3 mg/dL (8.4-10.2); Carbon Dioxide 22 mmol/L (22-30); Chloride 108 mmol/L (98-107); Glucose 84 mg/dL (74-99); Non-African American GFR(MDRD) >60 (>60 ml/min/1.73 sqM); Potassium 3.9 mmol/L (3.5-5.1); Sodium 140 mmol/L (137-145)
[2017-01-30] MEDS: TAMSULOSIN 0.4 MG CAP.ER.24H PO SCH (09:26)
[2017-01-30] MEDS: INSULIN LISPRO (humaLOG) 300 UNIT/3 ML VIAL SQ SCH ×4 (09:26→21:07)
[2017-01-30] MEDS: REPAGLINIDE 1 MG TAB PO SCH ×3 (09:26→21:07)
[2017-01-30] MEDS: INSULIN GLARGINE 100 UNIT/ML 10 ML VIAL SQ SCH (09:27)
[2017-01-30] MEDS: AMPICILLIN-SULBACTAM 3 GM in SODIUM CHLORIDE 0.9% 100 ML IVPB SCH (09:28)
[2017-01-30] MEDS ORDERED: PIPERACILLIN-TAZOBACTAM 3.375 GM in DEXTROSE/WATER 1 50ML.BAG IVPB SCH (11:15)
--- NOTE | 2017-01-30 12:02 | XR ---
EXAMINATION TYPE: XR chest 1V portable DATE OF EXAM: 01/30/2017 HISTORY: Shortness of breath. COMPARISON: 01/28/2017 TECHNIQUE: Single view of the chest is submitted. FINDINGS: Demonstrated are scattered senescent parenchymal change. Increasing right basilar opacity may reflect atelectasis and/or infiltrate with small effusion. Jordan nued follow-up is advised. The heart is stable. Hilar and mediastinal structures are within normal limits. Degenerative changes are seen of the dorsal spine. IMPRESSION: 1. Increasing right basilar opacity may reflect atelectasis and/or infiltrate with small effusion. C ontinued follow-up is advised.
[2017-01-30 12:20] LABS: Glucose,Whole Blood 160 mg/dL (75-99)
[2017-01-30] MEDS: PANTOPRAZOLE 40 MG/10 ML VIAL IVP SCH ×2 (15:47→21:06)
[2017-01-30] MEDS: HEPARIN SODIUM,PORCINE 5,000 UNIT/ML 1 ML VIAL SQ SCH ×2 (15:47→23:30)
--- NOTE | 2017-01-30 16:06 | P.PN ---
Subjective Principal diagnosis: Cholecystitis Patient had fevers again last night. He is complaining of some belching. Decreased bowel function. SARINA drain remains serosanguineous. Objective - Vital Signs Vital signs: Vital Signs Temp 98.7 F 01/30/17 08:00 Pulse 63 01/30/17 08:00 Resp 16 01/30/17 08:00 BP 148/70 01/30/17 07:00 Pulse Ox 94 L 01/30/17 07:00 Intake & Output 01/29/17 01/30/17 01/30/17 18:59 06:59 18:59 Intake Total 50 2000 Output Total 1025 45 650 Balance -975 1955 -650 Intake: IV 600 Sodium Chloride 0.9% 1, 600 000 ml @ 75 mls/hr IV . [id number] [facility] Rx#:[id number] Intake, IV Titration 100 Amount Ampicillin-Sulbactam 3 gm 100 In Sodium Chloride 0.9% 100 ml @ 100 mls/hr IVPB Q8HR [facility] Rx#:[id number] Oral 50 1300 Output: Drainage 45 50 Abdomen 45 50 Urine 1025 600 Straight 325 600 Other: Voiding Method Indwelling Catheter Indwelling Catheter Indwelling Catheter - Exam Abdomen: Soft, mild distention, minimal tenderness, dressings intact - Labs CBC & Chem 7: 01/30/17 07:29 01/30/17 07:29 Labs: Abnormal Lab Results - Last 24 Hours (Table) 01/29/17 01/29/17 01/30/17 Range/Units 16:35 21:02 07:29 WBC 12.9 H (3.8-10.6) k/uL RBC 4.17 L (4.30-5.90) m/uL Hgb 12.9 L (13.0-17.5) gm/dL Hct 38.3 L (39.0-53.0) % Neutrophils # 10.7 H (1.3-7.7) k/uL Chloride (98-107) mmol/L POC Glucose (mg/dL) 157 H 147 H (75-99) mg/dL Calcium (8.4-10.2) mg/dL 01/30/17 01/30/17 Range/Units 07:29 12:01 WBC (3.8-10.6) k/uL RBC (4.30-5.90) m/uL Hgb (13.0-17.5) gm/dL Hct (39.0-53.0) % Neutrophils # (1.3-7.7) k/uL Chloride 108 H (98-107) mmol/L POC Glucose (mg/dL) 160 H (75-99) mg/dL Calcium 8.3 L (8.4-10.2) mg/dL Microbiology - Last 24 Hours (Table) 01/29/17 01:43 Blood Culture - Preliminary Blood No Growth after 24 hours 01/29/17 02:18 Blood Culture - Preliminary Blood No Growth after 24 hours 01/27/17 18:13 Blood Culture - Preliminary Blood No Growth after 48 hours Assessment and Plan (1) Acute cholecystitis Narrative/Plan: Agree with continuing fever workup. Recheck lab work tomorrow. Keep drain until postop follow-up. Status: Acute
[2017-01-30 16:11] VITALS: TEMP 98.6
[2017-01-30 17:48] LABS: Glucose,Whole Blood 157 mg/dL (75-99)
[2017-01-30] MEDS: PIPERACILLIN-TAZOBACTAM 3.375 GM in DEXTROSE/WATER 1 50ML.BAG IVPB SCH (19:11)
[2017-01-30] MEDS: LEVALBUTEROL NEB 1.25 MG/3 ML AMP INHALATION SCH (20:02)
[2017-01-30 20:21] LABS: Glucose,Whole Blood 211 mg/dL (75-99)
[2017-01-31] MEDS: PIPERACILLIN-TAZOBACTAM 3.375 GM in DEXTROSE/WATER 1 50ML.BAG IVPB SCH (03:49)
[2017-01-31 07:49] LABS: Glucose,Whole Blood 113 mg/dL (75-99)
[2017-01-31 08:16] LABS: Basophils % (A) 0 %; CHCM 34.9; Eosinophils # (A) 0.4 k/uL (0-0.7); Eosinophils % (A) 5 %; HCT 35.2 % (39.0-53.0); HDW 2.85; HGB 12.5 gm/dL (13.0-17.5); Luc % (Auto) 2; Lymphocytes # (A) 1.2 k/uL (1.0-4.8); Lymphocytes % (A) 14 %; MCH 31.6 pg (25.0-35.0); MCHC 35.5 g/dL (31.0-37.0); MCV 89.1 fL (80.0-100.0); Mean Platelet Volume 6.8; Monocytes # (A) 0.5 k/uL (0-1.0); Monocytes % (A) 6 %; Neutrophils # (A) 6.6 k/uL (1.3-7.7); Neutrophils % (A) 74 %; RBC 3.94 m/uL (4.30-5.90); RDW 12.4 % (11.5-15.5); WBC 8.9 k/uL (3.8-10.6); WBC (Perox) 9.72
[2017-01-31] MEDS: INSULIN LISPRO (humaLOG) 300 UNIT/3 ML VIAL SQ SCH (08:35)
[2017-01-31] MEDS: REPAGLINIDE 1 MG TAB PO SCH (08:38)
[2017-01-31] MEDS: PANTOPRAZOLE 40 MG/10 ML VIAL IVP SCH (08:38)
[2017-01-31] MEDS: HEPARIN SODIUM,PORCINE 5,000 UNIT/ML 1 ML VIAL SQ SCH (08:38)
[2017-01-31] MEDS: TAMSULOSIN 0.4 MG CAP.ER.24H PO SCH (08:38)
[2017-01-31 08:44] LABS: ALT 53 U/L (21-72); AST 33 U/L (17-59); Alkaline Phosphatase 78 U/L (38-126); Anion Gap 8 mmol/L; Blood Urea Nitrogen 13 mg/dL (9-20); Calcium 8.6 mg/dL (8.4-10.2); Carbon Dioxide 25 mmol/L (22-30); Chloride 106 mmol/L (98-107); Glucose 99 mg/dL (74-99); Non-African American GFR(MDRD) >60 (>60 ml/min/1.73 sqM); Sodium 139 mmol/L (137-145); Total Bilirubin 0.6 mg/dL (0.2-1.3); Total Protein 5.7 g/dL (6.3-8.2)
[2017-01-31] MEDS: INSULIN GLARGINE 100 UNIT/ML 10 ML VIAL SQ SCH (08:49)
[2017-01-31] MEDS: LEVALBUTEROL NEB 1.25 MG/3 ML AMP INHALATION SCH ×2 (09:11→12:59)
[2017-01-31 09:15] VITALS: BP 148/64; PULSE 58; RESP 16
[2017-01-31] MEDS: SODIUM CHLORIDE 0.9% 1,000 ML IV SCH (11:01)
[2017-01-31 11:57] LABS: Glucose,Whole Blood 158 mg/dL (75-99)
--- NOTE | 2017-01-31 12:38 | P.PN ---
Subjective Principal diagnosis: Acute cholecystitis The patient is feeling better today. No nausea or vomiting. Passing a large amount of flatus. His abdomen does not feel is distended. He is anxious to go home. Objective - Vital Signs Vital signs: Vital Signs Temp 98.6 F 01/31/17 07:00 Pulse 58 L 01/31/17 07:00 Resp 16 01/31/17 08:00 BP 148/64 01/31/17 07:00 Pulse Ox 92 L 01/31/17 07:00 Intake & Output 01/30/17 01/31/17 01/31/17 18:59 06:59 18:59 Intake Total 425 552.5 240 Output Total 650 1050 Balance -225 -497.5 240 Intake: IV 375 Sodium Chloride 0.9% 1, 375 000 ml @ 75 mls/hr IV . [id number] [facility] Rx#:[id number] Intake, IV Titration 50 312.5 Amount Piperacillin-Tazobactam 3 50 12.5 .375 gm In Dextrose/Water 1 50ml.bag @ 12.5 mls/hr IVPB Q8H [facility] Rx#: [id number] Sodium Chloride 0.9% 1, 300 000 ml @ 75 mls/hr IV . [id number] [facility] Rx#:[id number] Oral 240 240 Output: Drainage 50 Abdomen 50 Urine 600 1050 Straight 600 Other: Voiding Method Indwelling Catheter Toilet Toilet Urinal Urinal # Voids 2 - Constitutional General appearance: Present: cooperative, no acute distress - Respiratory Respiratory: bilateral: diminished (At the bases) - Gastrointestinal General gastrointestinal: Present: distended (Moderately), normal bowel sounds Localized gastrointestinal: surgical scar: diffuse (Incisions are healing without cellulitis. SARINA is serosanguineous.) - Labs CBC & Chem 7: 01/31/17 07:22 01/31/17 07:22 Labs: Abnormal Lab Results - Last 24 Hours (Table) 01/30/17 01/30/17 01/31/17 Range/Units 17:41 20:20 07:22 RBC 3.94 L (4.30-5.90) m/uL Hgb 12.5 L (13.0-17.5) gm/dL Hct 35.2 L (39.0-53.0) % POC Glucose (mg/dL) 157 H 211 H (75-99) mg/dL Total Protein (6.3-8.2) g/dL Albumin (3.5-5.0) g/dL 01/31/17 01/31/17 01/31/17 Range/Units 07:22 07:36 11:53 RBC (4.30-5.90) m/uL Hgb (13.0-17.5) gm/dL Hct (39.0-53.0) % POC Glucose (mg/dL) 113 H 158 H (75-99) mg/dL Total Protein 5.7 L (6.3-8.2) g/dL Albumin 2.8 L (3.5-5.0) g/dL Microbiology - Last 24 Hours (Table) 01/29/17 01:43 Blood Culture - Preliminary Blood No Growth after 48 hours 01/29/17 02:18 Blood Culture - Preliminary Blood No Growth after 48 hours 01/27/17 18:13 Blood Culture - Preliminary Blood No Growth after 72 hours Assessment and Plan (1) Acute cholecystitis Status: Acute (2) SIRS (systemic inflammatory response syndrome) Status: Acute Plan: The patient is surgically improving. From my standpoint he could be discharged home with a drain. He and his were instructed on drain care and what to look for as far as the color and texture of the drainage. Call if there is problems or concerns.
--- NOTE | 2017-02-01 10:15 | PN ---
Patient is status post cholecystectomy for sepsis secondary to cholecystitis. Patient is on Zosyn. Patient still had low grade fever. So far cultures are negative. Patient's abdomen is still distended, tympanic and has not passed much gas, sluggish bowel sounds. Patient had urinary retention probably related to intraabdominal infection. Patient received De León catheter. Patient was started on Flomax. Will discontinue De León catheter tomorrow. Reassess for urinary retention tomorrow. Patient will be continued on Unasyn. Patient is felling much better today. Patient's abdominal pain significantly improved. REVIEW OF SYSTEMS: ( ) ABDOMEN: As described in HPI. Medications were reviewed. PHYSICAL EXAMINATION: VITAL SIGNS: Temperature 98.9, pulse 65, respiratory rate of 16, blood pressure 124/53, saturating at 92% on room air. ( ) ABDOMEN: The abdomen is mildly distended. Sluggish bowel sounds. Patient's abdominal surgical site area is clean without any redness. LABORATORY DATA: CBC and CMP abnormal for elevated white blood cell count. Patient does have fever. ASSESSMENT AND PLAN: 1. Sepsis secondary to acute cholecystitis. 2. Type 2 diabetes mellitus. Continue with present treatment. titrate insulin as necessary. 3. Diabetic nephropathy. 4. Urinary retention probably due to intraabdominal infection and recent surgery. 5. Benign prostatic hypertrophy cannot be ruled out. Patient was started on Flomax after discontinuation of De León catheter tomorrow for any further urinary retention. Management accordingly depending on tomorrow's assessment. MTDD
== END 2017-01-31 13:15 | disposition home or self-care (01) | DRG 854 ==
LOC: EC 17:49 → 6SEL 20:31 → 5MS5E 01-29 17:02
PROVIDERS: ADMIT Hospitalist; ATTEND Hospitalist
PROC: 0FT44ZZ Resection of Gallbladder, Percutaneous Endoscopic Approach (ICD-10-PCS; principal; 2017-01-28 08:35)
PROC: 0T9B70Z Drainage of Bladder with Drainage Device, Via Natural or Artificial Opening (ICD-10-PCS; 2017-01-29)
DX: A41.9 Sepsis, unspecified organism (principal); K81.0 Acute cholecystitis; K82.1 Hydrops of gallbladder; E11.42 Type 2 diabetes mellitus with diabetic polyneuropathy; R11.2 Nausea with vomiting, unspecified; R14.2 Eructation; R33.8 Other retention of urine; N40.1 Benign prostatic hyperplasia with lower urinary tract symptoms; R41.82 Altered mental status, unspecified; E78.5 Hyperlipidemia, unspecified; R53.1 Weakness; Z79.4 Long term (current) use of insulin; Z81.8 Family history of other mental and behavioral disorders
CPT/HCPCS: 36415; 70450; 71010; 71020; 74176; 80048; 80053; 81001; 82150; 83036; 83605; 84484; 85025; 87040; 88304; 93005; 94640; 94760